=== PATIENT | female | born 1985 | race Hispanic/Latino ===

== ENCOUNTER 2021-08-06 03:54 | Emergency (ER) | payer BC, OTHER ==
[~2021-08-06] VITALS: Ht 154.9 cm; Wt 63.5 kg
[2021-08-06 03:55] VITALS: BP 123/64
[2021-08-06] MEDS ORDERED: LORAZEPAM 1 MG TABLET PO ONE (05:00)
[2021-08-06 05:09] LABS: AMPHET/METH SCREEN,URINE NEGATIVE (NEGATIVE); BARBITURATE SCREEN, URINE NEGATIVE (NEGATIVE); BENZODIAZEPINES SCREEN,URINE NEGATIVE (NEGATIVE); CANNABINOID SCREEN,URINE POSITIVE (NEGATIVE); COCAINE SCREEN,URINE NEGATIVE (NEGATIVE); OPIATE SCREEN,URINE NEGATIVE (NEGATIVE); PHENCYCLIDINE SCREEN,URINE NEGATIVE (NEGATIVE)
== END 2021-08-06 06:30 | disposition home or self-care (01) ==
LOC: EDH 03:54
DX: F43.20 Adjustment disorder, unspecified (principal); F41.9 Anxiety disorder, unspecified; T40.715A Adverse effect of cannabis, initial encounter; Y92.89 Other specified places as the place of occurrence of the external cause
CPT/HCPCS: 80305; 93005